=== PATIENT | female | born 1955 | race Caucasian/White ===

== ENCOUNTER 2020-12-29 09:43 | Day surgery (SDC) | payer MEDICARE, BC ==
[~2020-12-29 09:43] MED LIST: AMLO5 PO; ASPI81EC PO; Aspirin EC81 MG PO; ESCI10 PO; GLIM2 PO; METO25ER PO; MONT10T PO; OMEP20ER PO; PROP60 PO
[2021-01-22] MEDS ORDERED: ATOR20 PO (09:38)
== END 2020-12-29 22:53 | disposition home or self-care (01) ==
LOC: MOI US 09:43 → MOI MAM 10:15 → MOI US 10:15
DX: C50.412 Malignant neoplasm of upper-outer quadrant of left female breast (principal); N63.20 Unspecified lump in the left breast, unspecified quadrant
CPT/HCPCS: 19083; 77065; 88305; 88341; 88342; 88360; A4648; G0279

== ENCOUNTER 2021-01-27 06:04 | Day surgery (SDC) | payer MEDICARE, BC ==
[~2021-01-27] VITALS: Ht 172.7 cm; Wt 119.0 kg
[~2021-01-27 06:04] MED LIST changes: +ATOR20 PO
--- NOTE | 2021-01-27 06:58 | NUR ---
Ambulatory in Day Surgery History, Chart, Medications and Allergies reviewed before start of procedure. Lungs clear T/O to Auscultation. Pre-Op teaching done. Pt verbalizes understanding.
--- NOTE | 2021-01-27 10:00 | NUR ---
Patient up to Ambulate independently. Gait steady. Discharge instructions reviewed with patient. Patient verbalizes understanding. Copy given to patient to take home. Dressing to procedure site clean, dry, intact with no visible drainage, swelling, erythema or bruising noted. Patient States Post-Procedure ride home has been arranged. Discharged via wheelchair to private car for ride home. STERI STRIPS TO R DION [facility]. SENT PT HOME WITH MEDIPORT INFORMATION. ALL BELONINGS RETURNED.
== END 2021-01-27 23:14 | disposition home or self-care (01) ==
LOC: ORSCMMR 06:04 → ORD 07:30 → ORSCMMR 23:14
PROVIDERS: Surgery
PROC: B5131ZA Fluoroscopy of Right Jugular Veins using Low Osmolar Contrast, Guidance (ICD-10-PCS; principal; 2021-01-27 07:30)
PROC: 05HM33Z Insertion of Infusion Device into Right Internal Jugular Vein, Percutaneous Approach (ICD-10-PCS; principal; 2021-01-27 07:30)
DX: C50.912 Malignant neoplasm of unspecified site of left female breast (principal); I10 Essential (primary) hypertension; E11.9 Type 2 diabetes mellitus without complications; Z79.899 Other long term (current) drug therapy; Z79.82 Long term (current) use of aspirin; Z80.3 Family history of malignant neoplasm of breast; Z80.42 Family history of malignant neoplasm of prostate; Z80.0 Family history of malignant neoplasm of digestive organs; J44.9 Chronic obstructive pulmonary disease, unspecified; K21.9 Gastro-esophageal reflux disease without esophagitis; E66.01 Morbid (severe) obesity due to excess calories; Z68.39 Body mass index [BMI] 39.0-39.9, adult; Z79.84 Long term (current) use of oral hypoglycemic drugs
CPT/HCPCS: 77001; 82947; A9270; C1788; J0690; J1100; J1642; J2250; J2370; J2405; J2704; J3010; J7120

== ENCOUNTER 2021-04-24 14:44 | Inpatient (IN) | payer MEDICARE, BC ==
[~2021-04-24] VITALS: Ht 172.7 cm; Wt 112.1 kg
[2021-04-24 15:26] LABS: BASOPHILS ABSOLUTE AUTO 0.02 K/mm3 (0.00-0.23); BASOPHILS PERCENT AUTO 0 % (0-2); EOSINOPHILS ABSOLUTE AUTO 0.02 K/mm3 (0.00-0.68); EOSINOPHILS PERCENT AUTO 0 % (0-6); Hematocrit 30.9 % (33.0-51.0); Hemoglobin 9.9 g/dL (11.5-16.0); IMMATURE GRAN ABSOLUTE AUTO 0.04 K/mm3 (0.00-0.10); IMMATURE GRAN PERCENT AUTO 1 % (0-1); LYMPHOCYTES ABSOLUTE AUTO 0.45 K/mm3 (0.84-5.20); LYMPHOCYTES PERCENT AUTO 5 % (21-46); MONOCYTES ABSOLUTE AUTO 0.31 K/mm3 (0.16-1.47); MONOCYTES PERCENT AUTO 4 % (4-13); Mean Corpuscular HGB 29.6 pg (26.0-34.0); Mean Corpuscular Volume 92 fL (80-100); Mean Platelet Volume 9.6 fL (9.1-12.4); NEUTROPHILS ABSOLUTE AUTO 8.04 K/mm3 (1.96-9.15); NEUTROPHILS PERCENT AUTO 91 % (41-73); NRBC ABSOLUTE 0.02 K/mm3 (0.00-0.02); NRBC Auto 0.2 /100 WBC (0.0-0.2); Platelet Count 246 K/mm3 (150-400); RDW Coefficient Variation 19.1 % (11.7-14.2); RDW Standard Deviation 63.9 fL (35.1-46.3); Red Blood Cell Count 3.35 M/mm3 (3.80-5.20); White Blood Cell Count 8.88 K/mm3 (4.00-11.30)
[2021-04-24 15:42] LABS: International Normalized Ratio 1.26; Prothrombin Time Results 13.4 Sec (9.7-11.5)
[2021-04-24 15:48] LABS: Alanine Aminotransfer (ALT/SGP 27 U/L (12-78); Albumin, Blood 3.2 g/dL (3.4-5.0); Albumin/Globulin Ratio 0.7 (0.8-1.8); Alk Phos 95 U/L (50-136); Anion Gap 5 mmol/L (6-16); Aspartate Aminotrans (AST/SGOT 13 U/L (12-37); Bilirubin, Total 0.8 mg/dL (0.1-1.0); Blood Urea Nitrogen 13 mg/dL (8-24); Bun/Creatinine Ratio 17.7 (12.0-20.0); CO2, Blood 27 mmol/L (21-32); Calcium, Blood 8.9 mg/dL (8.5-10.1); Chloride, Blood 101 mmol/L (98-108); Creatinine, Blood 0.74 mg/dL (0.40-1.00); Globulin, Blood 4.3 g/dL (2.2-4.0); Glomerular Filtration Rate >60 (60-); Glucose, Blood 222 mg/dL (70-99); Potassium, Blood 3.9 mmol/L (3.5-5.5); Sodium, Blood 133 mmol/L (136-145); Total Protein, Blood 7.5 g/dL (6.4-8.2)
[2021-04-24] MEDS ORDERED: ALOGLIPTIN25 M1 PO (19:15)
[2021-04-24] MEDS ORDERED: XARELTO20 M1 PO (19:18)
[2021-04-24] MEDS ORDERED: SULTRIDS PO (19:21)
[2021-04-24] MEDS ORDERED: DEXA4 PO (20:33)
[2021-04-24] MEDS ORDERED: LEVEMIR FL100 UNIT/2 SC (20:34)
[2021-04-24] MEDS ORDERED: INSULIN AS100 UNIT/8 SC (20:35)
[2021-04-24] MEDS ORDERED: XARELTO20 MG PO (20:41)
--- NOTE | 2021-04-24 23:32 | NUR ---
ADMISSION: PATIENT IS RECIEVED FROM ER VIA STRETCHER. ABLE TO AMBULATE FROM CARSON TO BATHROOM WITH STEADY GAIT. VSS, PAIN IS TOLERABLE AT A 4. PATIENT IS ORIENTED TO TYHE ROOM AND CALL ELIZABETH. CONTACT OSOLATION IS INTITIATED.
[2021-04-25 05:32] LABS: BASOPHILS ABSOLUTE AUTO 0.01 K/mm3 (0.00-0.23); BASOPHILS PERCENT AUTO 0 % (0-2); EOSINOPHILS PERCENT AUTO 0 % (0-6); Hematocrit 25.6 % (33.0-51.0); Hemoglobin 8.2 g/dL (11.5-16.0); IMMATURE GRAN ABSOLUTE AUTO 0.03 K/mm3 (0.00-0.10); IMMATURE GRAN PERCENT AUTO 1 % (0-1); LYMPHOCYTES ABSOLUTE AUTO 0.63 K/mm3 (0.84-5.20); LYMPHOCYTES PERCENT AUTO 11 % (21-46); MONOCYTES ABSOLUTE AUTO 0.22 K/mm3 (0.16-1.47); MONOCYTES PERCENT AUTO 4 % (4-13); Mean Corpuscular HGB 29.2 pg (26.0-34.0); Mean Corpuscular Volume 91 fL (80-100); Mean Platelet Volume 9.5 fL (9.1-12.4); NEUTROPHILS ABSOLUTE AUTO 4.99 K/mm3 (1.96-9.15); NEUTROPHILS PERCENT AUTO 85 % (41-73); Platelet Count 181 K/mm3 (150-400); RDW Coefficient Variation 18.7 % (11.7-14.2); RDW Standard Deviation 62.1 fL (35.1-46.3); Red Blood Cell Count 2.81 M/mm3 (3.80-5.20); White Blood Cell Count 5.88 K/mm3 (4.00-11.30)
[2021-04-25 05:53] LABS: Anion Gap 4 mmol/L (6-16); Blood Urea Nitrogen 14 mg/dL (8-24); Bun/Creatinine Ratio 18.9 (12.0-20.0); CO2, Blood 27 mmol/L (21-32); Calcium, Blood 8.5 mg/dL (8.5-10.1); Chloride, Blood 102 mmol/L (98-108); Creatinine, Blood 0.74 mg/dL (0.40-1.00); Glomerular Filtration Rate >60 (60-); Glucose, Blood 292 mg/dL (70-99); Potassium, Blood 4.1 mmol/L (3.5-5.5); Sodium, Blood 133 mmol/L (136-145)
--- NOTE | 2021-04-25 05:57 | NUR ---
SHIFT SUMMARY: PATIENT IS A&OX4. UP TO THE BATHROOM INDEPENDANTLY WITH STEADY GAIT. VSS WITH A RESOLUTION OF A LOW GRADE TEMP. OBSERVED IN THE ER. IVF AND ANTIBIOTICS ADMINISTERED PER JAN. R AXILLA IS TENDER TO TOUCH. ARE IS WASHED AND DSD WAS APPLIED. SMALL AMOUNT OF DRAINAGE OBSERVED WITH NO ODOR.
--- NOTE | 2021-04-25 16:38 | NUR ---
SHIFT SUMMARY MRSA SWABS SENT OF R ARMPIT THIS SHIFT. INDEP IN ROOM. WOUND IN R ARMPIT CLEANED AND REDRESSED. BLOOD SUGARS TREATED WITH INSULIN. POSSIBLE DC TOMORROW TO HOME. CALL LIGHT IN REACH, WCTM
--- NOTE | 2021-04-26 07:45 | NUR ---
SHIFT SUMMARY: NO ACUTE CHANGES THIS SHIFT. VSS, BLOOD GLUCOSE AT HS WAS 299 AND 10 UNITS OF SEMGLEE WAS GIVEN PER MAR. INDEPENDANT IN THE ROOM. VOIDING WITHOUT DIFFICULTY. RIGHT AXILLA DRSG WAS CHANGED, MINIMAL DRAINAGE OBSERVED. NO REPORT OF PAIN.
[2021-04-26] MEDS ORDERED: BANATROL PLUS1 EAC1 PO (12:08)
[2021-04-26] MEDS ORDERED: SULFAMETHOXAZO1 EAC1 PO (12:10)
--- NOTE | 2021-04-26 13:16 | NUR ---
RECEIVED VERBAL ORDER FROM DR PEOPLES FOR ODT ZOFRAN SL TABS, CALLED IT IN TO [facility]. ODT ZOFRAN 4MG Q 8PRN NAUSEA, 30 TABS, [address]. [address]SO IN[address] PEOPLES THAT PT HAD 4-5 LOOSE BMS THIS MORNING, BUT PT STATES HER STOMACH HAS CALMED DOWN SIGNIFICANTLY. PT ALSO STATES SHE GETS LOOSE STOOL FROM HER CHEMO. EDUCATED ON CDIF AND S/S TO WATCH FOR AND WHEN TO CALL HER DOCTOR
--- NOTE | 2021-04-26 14:02 | NUR ---
DISCHARGE SUMMARY PIV REMOVED, MEDS FAXED TO PHARMACY, PT INFORMED TO MAKE F/U APPT WITH PCP WHEN THEIR OFFICES OPEN TOMORROW. PAPERWORK REVIEWED, PT WHEELED COWN IN WC TO IN CAR
== END 2021-04-26 13:59 | disposition home or self-care (01) | DRG 603 ==
LOC: ER 14:44 → MEDS 14:45
PROVIDERS: Nurse Practitioner Acute Care; Physician Assistant; ADMIT Internal Medicine
PROC: 0X950ZZ Drainage of Left Axilla, Open Approach (ICD-10-PCS; principal; 2021-04-24)
DX: L02.411 Cutaneous abscess of right axilla (principal); E11.9 Type 2 diabetes mellitus without complications; Z86.711 Personal history of pulmonary embolism; Z86.718 Personal history of other venous thrombosis and embolism; I10 Essential (primary) hypertension; C50.912 Malignant neoplasm of unspecified site of left female breast; Z79.899 Other long term (current) drug therapy; Z88.8 Allergy status to other drugs, medicaments and biological substances; M19.90 Unspecified osteoarthritis, unspecified site; Z90.49 Acquired absence of other specified parts of digestive tract; Z90.710 Acquired absence of both cervix and uterus; Z98.890 Other specified postprocedural states; Z79.4 Long term (current) use of insulin; E66.9 Obesity, unspecified; Z68.37 Body mass index [BMI] 37.0-37.9, adult
CPT/HCPCS: 10060; 36415; 71045; 80048; 80053; 82947; 83605; 85025; 85610; 85730; 87040; 87070; 87075; 87077; 87081; 87186; 87205; 96365-59; 96366; 96366-59; 96376; 99285-25; A9270; G0378

== ENCOUNTER 2021-06-07 05:20 | Inpatient (IN) | payer MEDICARE, BC ==
[~2021-06-07] VITALS: Ht 172.7 cm; Wt 108.5 kg
[~2021-06-07 05:20] MED LIST changes: +ALOGLIPTIN25 M1 PO; +BANATROL PLUS1 EAC1 PO; +DEXA4 PO; +INSULIN AS100 UNIT/8 SC; +LEVEMIR FL100 UNIT/2 SC; +SULFAMETHOXAZO1 EAC1 PO; +SULTRIDS PO; +XARELTO20 M1 PO; +XARELTO20 MG PO
[2021-06-07 06:11] LABS: BASOPHILS ABSOLUTE AUTO 0.01 K/mm3 (0.00-0.23); BASOPHILS PERCENT AUTO 0 % (0-2); EOSINOPHILS ABSOLUTE AUTO 0.01 K/mm3 (0.00-0.68); EOSINOPHILS PERCENT AUTO 0 % (0-6); Hematocrit 35.4 % (33.0-51.0); Hemoglobin 11.7 g/dL (11.5-16.0); IMMATURE GRAN ABSOLUTE AUTO 0.02 K/mm3 (0.00-0.10); IMMATURE GRAN PERCENT AUTO 1 % (0-1); LYMPHOCYTES ABSOLUTE AUTO 0.63 K/mm3 (0.84-5.20); LYMPHOCYTES PERCENT AUTO 20 % (21-46); MONOCYTES PERCENT AUTO 13 % (4-13); Mean Corpuscular HGB 29.4 pg (26.0-34.0); Mean Corpuscular HGB Conc 33.1 g/dL (31.5-36.5); Mean Corpuscular Volume 89 fL (80-100); Mean Platelet Volume 9.5 fL (9.1-12.4); NEUTROPHILS ABSOLUTE AUTO 2.09 K/mm3 (1.96-9.15); NEUTROPHILS PERCENT AUTO 66 % (41-73); Platelet Count 199 K/mm3 (150-400); RDW Coefficient Variation 15.2 % (11.7-14.2); RDW Standard Deviation 49.5 fL (35.1-46.3); Red Blood Cell Count 3.98 M/mm3 (3.80-5.20); White Blood Cell Count 3.16 K/mm3 (4.00-11.30)
[2021-06-07 06:36] LABS: Alanine Aminotransfer (ALT/SGP 62 U/L (12-78); Albumin, Blood 2.8 g/dL (3.4-5.0); Albumin/Globulin Ratio 0.7 (0.8-1.8); Alk Phos 79 U/L (50-136); Anion Gap 4 mmol/L (6-16); Aspartate Aminotrans (AST/SGOT 40 U/L (12-37); Bilirubin, Total 0.5 mg/dL (0.1-1.0); Blood Urea Nitrogen 11 mg/dL (8-24); Bun/Creatinine Ratio 17.8 (12.0-20.0); CO2, Blood 28 mmol/L (21-32); Calcium, Blood 8.6 mg/dL (8.5-10.1); Chloride, Blood 106 mmol/L (98-108); Creatinine, Blood 0.62 mg/dL (0.40-1.00); Glomerular Filtration Rate >60 (60-); Glucose, Blood 255 mg/dL (70-99); Potassium, Blood 3.5 mmol/L (3.5-5.5); Sodium, Blood 138 mmol/L (136-145); Total Protein, Blood 6.8 g/dL (6.4-8.2); Troponin I <0.015 ng/mL (0.000-0.040)
--- NOTE | 2021-06-07 14:07 | NUR ---
PT ADMITTED FROM ED ON 3L NC. TITRATED TO 2L, SATTING 94% ON THIS. PT ALERT AND ORIENTED, COOPERATIVE. STATES PRODUCTIVE COUGH WITH GREEN/YELLOW SPUTUM. INDEPENDENT IN ROOM. DENIES NEEDS OR CONCERNS AT THIS TIME. CALL LIGHT IN REACH
--- NOTE | 2021-06-07 18:52 | NUR ---
SHIFT SUMMARY: PT ON 2L O2. INDEPENDENT IN ROOM. CONTINUOUS BIOX IN PLACE. DENIES NEEDS OR CONCERNS AT THIS TIME. EDUCATED ABOUT NEED FOR REPOSITIONING WITH COVID. PT SEEMED RECEPTIVE.
[2021-06-08 05:48] LABS: BASOPHILS PERCENT AUTO 0 % (0-2); EOSINOPHILS PERCENT AUTO 0 % (0-6); Hematocrit 35.5 % (33.0-51.0); Hemoglobin 11.3 g/dL (11.5-16.0); IMMATURE GRAN ABSOLUTE AUTO 0.02 K/mm3 (0.00-0.10); IMMATURE GRAN PERCENT AUTO 1 % (0-1); LYMPHOCYTES ABSOLUTE AUTO 0.73 K/mm3 (0.84-5.20); LYMPHOCYTES PERCENT AUTO 21 % (21-46); MONOCYTES ABSOLUTE AUTO 0.53 K/mm3 (0.16-1.47); MONOCYTES PERCENT AUTO 15 % (4-13); Mean Corpuscular HGB Conc 31.8 g/dL (31.5-36.5); Mean Corpuscular Volume 91 fL (80-100); Mean Platelet Volume 9.6 fL (9.1-12.4); NEUTROPHILS ABSOLUTE AUTO 2.27 K/mm3 (1.96-9.15); NEUTROPHILS PERCENT AUTO 64 % (41-73); Platelet Count 225 K/mm3 (150-400); RDW Standard Deviation 50.1 fL (35.1-46.3); White Blood Cell Count 3.55 K/mm3 (4.00-11.30)
[2021-06-08 06:18] LABS: Alanine Aminotransfer (ALT/SGP 61 U/L (12-78); Albumin, Blood 2.8 g/dL (3.4-5.0); Albumin/Globulin Ratio 0.7 (0.8-1.8); Alk Phos 79 U/L (50-136); Anion Gap 5 mmol/L (6-16); Aspartate Aminotrans (AST/SGOT 33 U/L (12-37); Bilirubin, Total 0.4 mg/dL (0.1-1.0); Blood Urea Nitrogen 20 mg/dL (8-24); Bun/Creatinine Ratio 29.6 (12.0-20.0); CO2, Blood 30 mmol/L (21-32); Calcium, Blood 9.1 mg/dL (8.5-10.1); Chloride, Blood 104 mmol/L (98-108); Creatinine, Blood 0.68 mg/dL (0.40-1.00); Globulin, Blood 4.2 g/dL (2.2-4.0); Glomerular Filtration Rate >60 (60-); Glucose, Blood 307 mg/dL (70-99); Potassium, Blood 3.8 mmol/L (3.5-5.5); Sodium, Blood 139 mmol/L (136-145)
--- NOTE | 2021-06-08 07:39 | NUR ---
CLOTH DYE RANGE OPERATOR SUMMARY Patient slept well. had no complaints of pain or discomfort. She did take Tylenol at HS as she does occasionally to help her sleep. Complaints of feeling like she can only take partial breath. Lung sounds actually clear, and dim in the bases. Very pleasant and cooperative with care
--- NOTE | 2021-06-08 07:54 | NUR ---
ASSUMED CARE: PT RESTING IN BED AT THIS TIME, 2L O2 VIA NC, SATTING AT 94%. PERIPHERAL IV PAINFUL AND REMOVED. CALL TO DR FRANCO REGARDING USE OF MEDIPORT SINCE PT IS ACTIVE CHEMO. STATES MEDIPORT CAN BE USED FOR IV BUT NOT FOR LABS. REBRANDER AWARE
--- NOTE | 2021-06-08 17:17 | NUR ---
SHIFT SUMMARY: PT ON 2L NC SATTING 94% AT THIS TIME. PLAN IS FOR DC AFTER FINISHING REMDISIVIR COURSE. DENIES NEEDS OR CONCERNS. INDEPENDENT IN ROOM.
--- NOTE | 2021-06-09 04:30 | NUR ---
SKIN GRADER SUMMARY PT A/O X4, INDEPENDENT IN THE ROOM. PLEASANT AND COOPERATIVE. DENIES PAIN, NAUSEA, DIZZINIESS OVERNIGHT. CONTINUES TO BE ON 2L O2 SATTING AROUND 95% DENIES SOB AT REST. PT STATES SHE DOES GET SOME SOB WITH ACTIVITY. ABLE TO MAKE NEEDS KNOWN. CALL LIGHT WITHIN REACH, WILL CONTINUE TO MONITOR.
--- NOTE | 2021-06-09 13:40 | NUR ---
Door closed I am not allowed to visit prad for pt forquick healing
[2021-06-09 14:52] LABS: Source, Urine Clean Catch
[2021-06-09 15:08] LABS: Appearance, Urine Hazy (Clear); Bilirubin, Urine Neg (Neg); Blood, Urine 2+ (Neg); Color, Urine Yellow (P-Yellow); Glucose Qualitative, Urine 4+ (Neg); Ketones, Urine Neg (Neg); Leukocyte Esterase, Urine 3+ (Neg); Nitrite, Urine Neg (Neg); Protein, Urine 1+ (Neg); Urobilinogen, Urine NORM (Normal); pH, Urine 6.5 (5.0-8.0)
[2021-06-09 15:29] LABS: Bacteria Many /hpf; Squamous Epithelial Cells Mod /hpf (Few); White Blood Cells, Urine 50-100 /hpf (0-5)
--- NOTE | 2021-06-09 18:15 | NUR ---
SHIFT SUMMARY: NO ACUTE EVENTS. OXYGEN AT 2 L/MIN NC, SATS 92-95% AND IS ROBINS. FINE CRACKLES NOTED IN RML AND RLL, OCC COUGH. C/O URINARY URGENCY, BURNING, AND FREQUENCY; UA SENT, CULTURE PENDING. HAD BM TODAY. CBG CONTINUES TO BE > 200. USING BSC INDEPENDENTLY. DENIES PAIN.
--- NOTE | 2021-06-10 05:38 | NUR ---
SHIFT SUMMARY PATIENT ALERT AND ORIENTED. HAD NO COMPLAINTS OF PAIN. REPORTS SHORTNESS OF BREATH UPON EXHERTION. NO ACUTE ISSUES NOTED. BED IN LOWEST POSITION WITH WHEELS LOCKED. CALL LIGHT WITHIN REACH. REPORT GIVEN TO ONCOMING RN.
--- NOTE | 2021-06-10 19:11 | NUR ---
SHIFT SUMMARY: NO ACUTE EVENTS. PRODUCTIVE COUGH, SPUTUM NOT OBSERVED. BM X 3 TODAY, HELD BOWEL MEDS PER HER REQUEST. DENIED PAIN. WEANED OXYGEN DOWN TO 1 L/MIN NC, WITH O2 SAT 91-94%, SLIGHT ROBINS. MAY NEED HOME O2 AT D/C. INDEPENDENT IN ROOM. GOOD APPETITE.
--- NOTE | 2021-06-11 04:37 | NUR ---
SHIFT SUMMARY PATIENT ALERT AND ORIENTED. HAD NO COMPLAINTS OF PAIN OR SHORTNESS OF BREATH. SLEPT WELL OVERNGIHT. NO ACUTE ISSUES NOTED. BED IN LOWEST POSITION WITH WHEELS LOCKED. CALL LIGHT WITHIN REACH. REPORT GIVEN TO ONCOMING RN.
[2021-06-11] MEDS ORDERED: Acetaminophen325 M1 PO (11:23)
[2021-06-11] MEDS ORDERED: CEPH500 PO (11:24)
[2021-06-11] MEDS ORDERED: DOCU100 PO (11:25)
[2021-06-11] MEDS ORDERED: GABA300T24 PO (11:25)
[2021-06-11] MEDS ORDERED: DEXA6 PO (11:25)
[2021-06-11] MEDS ORDERED: Humibid-LA 600600 MG PO (11:28)
[2021-06-11] MEDS ORDERED: VISBIOME 112.51 EACH PO (11:29)
[2021-06-11] MEDS ORDERED: Tessalon200 MG PO (13:59)
--- NOTE | 2021-06-11 16:23 | NUR ---
PATIENT SATURATIONS AT REST WITHOUT OXYGEN PTS SATS 91% THEN PT UP AMBULATING IN THE ROOM WITHOUT OXYGEN SATS DROPPED TO 89% THEN PT ABULATING IN THE ROOM WITH OXYGEN AT 1L VIA NC SATS 94%
--- NOTE | 2021-06-11 17:08 | NUR ---
DISCHARGE REVIEWED WITH PT. SHE VERBALIZED UNDERSTANDING MEDS AND APPT. MEDIPORT HEPARIN LOCKED. NEEDLE DEACCESSED WITH DONATO galan RN. NO OTHER IV, NO TELE. PT WHEELED TO DOOR BY AIDE AT 1710
== END 2021-06-11 17:10 | disposition home or self-care (01) | DRG 871 ==
LOC: ER 05:20 → ERHOLD 08:24 → MEDS 13:10
PROVIDERS: Emergency Medicine; ADMIT Internal Medicine
PROC: 8E0ZXY6 Isolation (ICD-10-PCS; principal; 2021-06-07)
PROC: XW033E5 Introduction of Remdesivir Anti-infective into Peripheral Vein, Percutaneous Approach, New Technology Group 5 (ICD-10-PCS; 2021-06-07)
DX: A41.89 Other specified sepsis (principal); U07.1 COVID-19; J12.82 Pneumonia due to coronavirus disease 2019; J96.01 Acute respiratory failure with hypoxia; N30.00 Acute cystitis without hematuria; R65.20 Severe sepsis without septic shock; I10 Essential (primary) hypertension; E11.9 Type 2 diabetes mellitus without complications; M19.90 Unspecified osteoarthritis, unspecified site; Z51.5 Encounter for palliative care; B95.1 Streptococcus, group B, as the cause of diseases classified elsewhere; J45.909 Unspecified asthma, uncomplicated; Z86.14 Personal history of Methicillin resistant Staphylococcus aureus infection; Z86.711 Personal history of pulmonary embolism; Z98.1 Arthrodesis status; Z90.49 Acquired absence of other specified parts of digestive tract; Z90.710 Acquired absence of both cervix and uterus; Z88.8 Allergy status to other drugs, medicaments and biological substances; Z79.4 Long term (current) use of insulin; Z79.01 Long term (current) use of anticoagulants; Z79.899 Other long term (current) drug therapy
CPT/HCPCS: 36415; 71045; 80053; 81001; 82947; 83615; 83880; 84484; 85025; 86140; 87077; 87086; 87147; 87186; 94762; 96374; 96375; 99285-25; A9270; J1100; J1642; J1815; J7050

== ENCOUNTER → 2021-07-06 | Outpatient (CLI) | payer MEDICARE, BC ==
[~2021-07-06] MED LIST changes: +Acetaminophen325 M1 PO; +CEPH500 PO; +DEXA6 PO; +DOCU100 PO; +GABA300T24 PO; +Humibid-LA 600600 MG PO; +Tessalon200 MG PO; +VISBIOME 112.51 EACH PO
== END | disposition home or self-care (01) ==
LOC: LAB 11:45 → LAB SHORT 11:45
DX: Z09 Encounter for follow-up examination after completed treatment for conditions other than malignant neoplasm (principal); Z86.14 Personal history of Methicillin resistant Staphylococcus aureus infection
CPT/HCPCS: 87081

== ENCOUNTER 2021-08-03 08:55 | Day surgery (SDC) | payer MEDICARE, BC ==
[~2021-08-03 08:55] MED LIST changes: +Inderal60 MG PO
== END 2021-08-03 23:28 | disposition home or self-care (01) ==
LOC: MOI US 08:55
DX: C50.812 Malignant neoplasm of overlapping sites of left female breast (principal); C50.912 Malignant neoplasm of unspecified site of left female breast
CPT/HCPCS: 19281; A4648

== ENCOUNTER 2021-08-04 08:01 | Day surgery (SDC) | payer MEDICARE, BC ==
[~2021-08-04] VITALS: Ht 174 cm; Wt 109.3 kg
--- NOTE | 2021-08-04 14:00 | NUR ---
SDS INTERVENTIONS DOCUMENTED UNDER OTHER F# FOR PROCEDURE ON 08/11/21. 20G IV TO RIGHT FA D/C FOR DISCHARGE. Patient up to Ambulate independently. Gait steady. Discharge instructions reviewed with patient. Patient verbalizes understanding. Copy given to patient to take home. Discharged via wheelchair to private car for ride home WITH .BREAST BINDER IN PLACE, PAIN IS "TOLERABLE AND GETTING BETTER". ICE PACK AND POST OP MEDICATION WITH PATIENT IN DISCHARGE FOLDER WITH PATIENT UPON DISCHARGE FROM UNIT.
== END 2021-08-04 13:55 | disposition home or self-care (01) ==
LOC: NM 08:01 → ORSCMMR 08:01 → NM 09:00
DX: C50.812 Malignant neoplasm of overlapping sites of left female breast (principal); Z17.1 Estrogen receptor negative status [ER-]; I10 Essential (primary) hypertension; E11.9 Type 2 diabetes mellitus without complications; Z79.4 Long term (current) use of insulin; Z79.899 Other long term (current) drug therapy
CPT/HCPCS: 38792; 76098; 82947; 88307; 88329; 88342; A9270; A9520; J0690; J1100; J1885; J2250; J2405; J2704; J3010; J7120; Q9968

== ENCOUNTER 2022-05-24 08:57 | Day surgery (SDC) | payer MEDICARE, BC | END 2022-05-24 23:20 | disposition home or self-care (01) | LOC: MOI US 08:57 | DX: N63.10 Unspecified lump in the right breast, unspecified quadrant (principal); Z85.3 Personal history of malignant neoplasm of breast | CPT/HCPCS: 19083; 77065; 88305; 88342; A4648 ==

== ENCOUNTER → 2023-02-07 | Outpatient (CLI) | payer MEDICARE, BC ==
[2023-02-07 14:54] LABS: Source, Urine Clean Catch
[2023-02-07 17:38] LABS: Appearance, Urine Turbid (Clear); Bilirubin, Urine Neg (Neg); Blood, Urine 4+ (Neg); Color, Urine Yellow (P-Yellow); Glucose Qualitative, Urine Neg (Neg); Ketones, Urine 1+ (Neg); Leukocyte Esterase, Urine 2+ (Neg); Nitrite, Urine Neg (Neg); Protein, Urine 2+ (Neg); Urobilinogen, Urine 1+ (Normal)
[2023-02-07 17:50] LABS: Amorphous Heavy (0-Heavy); Bacteria Few /hpf; Squamous Epithelial Cells Few /hpf (Few)
== END | disposition home or self-care (01) ==
LOC: LAB 14:53 → LAB SHORT 14:53
PROVIDERS: Registered Nurse Oncology
DX: R30.0 Dysuria (principal); C50.919 Malignant neoplasm of unspecified site of unspecified female breast
CPT/HCPCS: 81001

== ENCOUNTER 2024-06-19 13:56 | Day surgery (SDC) | payer MEDICARE, BC ==
[~2024-06-19] VITALS: Ht 172.7 cm; Wt 115.4 kg
[~2024-06-19 13:56] MED LIST changes: +Atropine Sulfate 0.1 MG/ML 10ML SYR ONE; +Glycopyrrolate 0.2 MG/ML 1MLVIAL ONE; +Lactated Ringer's 1,000 ML IV ONE; +Lidocaine 2% 5 ML SDV ONE; +Lidocaine HCl/Pf 1% 5 ML VIAL ONE; +Methylene Blue 1% 100 MG/10 ML VIAL ONE; +Ondansetron HCl 2 MG / ML 2ML Vial ONE; +ePHEDrine Sulfate 50 MG/ML 1ML Injection ONE
[2024-06-19] MEDS ORDERED: Lactated Ringer's 1,000 ML IV ONE (14:44)
[2024-06-19] MEDS ORDERED: propofoL 40 ML IV ONE (15:01)
[2024-06-19 15:45] VITALS: BP 153/72
== END 2024-06-19 15:54 | disposition home or self-care (01) ==
LOC: ORSCSDS 13:56
PROVIDERS: Surgery
PROC: 0DBM8ZX Excision of Descending Colon, Via Natural or Artificial Opening Endoscopic, Diagnostic (ICD-10-PCS; principal; 2024-06-19 14:45)
DX: Z12.11 Encounter for screening for malignant neoplasm of colon (principal); Z86.010 Personal history of colon polyps; R19.5 Other fecal abnormalities; Z80.0 Family history of malignant neoplasm of digestive organs; D12.4 Benign neoplasm of descending colon; K57.30 Diverticulosis of large intestine without perforation or abscess without bleeding; I10 Essential (primary) hypertension; E11.9 Type 2 diabetes mellitus without complications; G47.33 Obstructive sleep apnea (adult) (pediatric); Z79.84 Long term (current) use of oral hypoglycemic drugs; Z79.899 Other long term (current) drug therapy; Z86.711 Personal history of pulmonary embolism; Z79.01 Long term (current) use of anticoagulants; Z68.38 Body mass index [BMI] 38.0-38.9, adult; Z85.3 Personal history of malignant neoplasm of breast
CPT/HCPCS: 82947; 88305; J0461; J2001; J2405; J2704; J7120; Q9968